=== PATIENT | male | born 1995 | race Caucasian/White ===

== ENCOUNTER 2022-09-28 14:33 | Emergency (ER) | payer MEDICAID, SELFPAY ==
[2022-09-28 14:34] VITALS: BP 132/91; PULSE 93; RESP 15; TEMP 36.4; O2SAT 98; BMI 19.8
--- NOTE | 2022-09-28 15:12 | CT_ITS ---
INDICATION: Change in Mental Status EXAMINATION: CT BRAIN - CT Head or Brain W/O Contrast Injection TECHNIQUE: Multiple axial images were obtained of the head without intravenous contrast. A radiation dose optimization technique was used for this scan. IV Contrast dosage and agent: None. COMPARISON: FINDINGS: BRAIN PARENCHYMA: No intra- or extra-axial hemorrhage. No evidence of acute infarct. No intracranial mass or mass effect. There is preservation of the clinton/white matter interface. Posterior fossa structures are unremarkable. CSF SPACES: Appropriate for age. No hydrocephalus. Basal cisterns are patent. CALVARIUM, SKULL BASE, PARANASAL SINUSES AND MASTOID AIR CELLS: Mild mucosal thickening of the maxillary and anterior ethmoid sinus. No discrete lytic or blastic abnormalities. There is cellulitis within the subcutaneous fat in the left upper neck posteriorly which is incompletely imaged without well-defined abscess ORBITS: Both globes, extraocular muscles, optic nerves and retrobulbar fat appear unremarkable. ASPECTS Score for Acute Strokes: 10 CT/Brain/Head without Contrast IMPRESSION: Negative Brain CT without contrast. Mild left maxillary and ethmoid sinus disease Cellulitis within the left upper neck posteriorly which is incompletely imaged without well-defined abscess Additional imaging of the neck with contrast would be helpful for further evaluation if clinically warranted Electronically Signed: Venkatesh Smith MD at 16:05 EST ,
--- NOTE | 2022-09-28 15:14 | EDS_ITS ---
HPI <Dr. Jarret Coates MD - Last Filed: 09/28/22 16:45> History of Present Illness Chief Complaint: Suicidal Informant: patient and parent Narrative Narrative: Mom brings in this patient for several reasons, she is concerned he has another active MRSA infection, 2 to 3 days of tender swollen area on the back of his head, has had some spontaneous drainage but very little, disorientation, hallucinations with commands telling him to kill himself and that he should although he is not having any suicidal ideation, and the fact that he is likely dehydrated since she brought him here directly off of a plane from [facility], it is taking him about 2 days including airport delays to get home, he has been in [place] homeless on the streets for about 7 months and was a missing person there. He states he was using IV fentanyl and what ever may have been mixed in with it but nothing else intentionally for that period of time, and at the end of July had what he was told was MRSA that was resistant and needed to be on linezolid for the lesions on his arms. He and mom state that they are much better now. He has been on no antibiotics for the past 2 or 3 weeks at least, saying that he was in snf at 1 point out there in [place] and while he was in snf they were giving him the antibiotics correctly. Mom is concerned that he is dehydrated since he has not been drinking fluids well or eating well. He has been having the auditory hallucinations for the past 2 weeks or more according to the patient, at least those that he is aware of has been hallucinations, and he stopped using drugs about 1 week ago. Mom then indicates he was seeing people in [place] 1 point prior to this, but the patient turns to her and states mom I hate to tell you this but those were real not hallucinations. He does not have a prior history of mental health diagnoses. PFSH <Dr. Jarret Coates MD - Last Filed: 09/28/22 16:45> [facility] Home Medications sulfamethoxazole 800 mg-trimethoprim 160 mg tablet 1 tab PO BID #20 TABLETS 09/28/22 [Rx Last Taken Unknown] Allergy/AdvReac Type Severity Reaction Status Date / Time No Known Allergies Allergy Verified 09/28/22 14:34 Social History (Updated 09/28/22 @ 15:[address] Jarret Coates MD) Smoking Status: Never smoker substance use type: opiates and IV drugs ROS <Dr. Jarret Coates MD - Last Filed: 09/28/22 16:45> ROS ED Constitutional Constitutional ED: Reports malaise; Denies chills or fever(s) Eyes Eyes: Denies change in vision or diplopia ENT ENT ED: Denies rhinorrhea or sore throat Cardiovascular Cardiovascular: Denies chest pain or palpitations Respiratory/Chest Respiratory/Chest: Reports cough; Denies dyspnea Gastrointestinal Gastrointestinal: Denies abdominal pain, diarrhea, nausea or vomiting Genitourinary Genitourinary ED: Denies dysuria or hematuria Musculoskeletal Musculoskeletal: Denies back pain or neck pain Integumentary Reports abscess; Denies rash Neurologic Neurologic: Reports confusion; Denies headache(s), paresthesias or weakness Psychiatric Psychiatric: Reports as per HPI, hallucinations and suicidal thoughts; Denies anxiety or suicidal ideation EXAM <Dr. Jarret Coates MD - Last Filed: 09/28/22 16:45> Physical Exam Const Vital Signs: 09/28/22 14:34 09/28/22 17:04 09/28/22 19:18 Temperature 97.5 F L Temperature Source Temporal Pulse Rate 93 79 Respiratory Rate 15 16 17 Blood Pressure 132/91 H 130/76 H Blood Pressure Mean 104 94 Pulse Ox 98 99 Oxygen Delivery Method Room Air Room Air Positive well nourished and well developed General Appearance ED: well developed and NAD HEENT Reports moist mucous membranes normocephalic and atraumatic Eyes PERRL and EOMs intact bilaterally Neck full ROM and supple Resp normal respiratory effort and clear to auscultation bilaterally Cardio regular rate, regular rhythm and no murmurs GI non-tender and non-distended Auscultation: normoactive bowel sounds Palpation: soft Back/Spine no CVA tenderness General Back: other FROM Extremity normal to inspection General Extremety ED: Negative for edema, pulses abnormal or tenderness General Extremity: Negative for edema or pulses abnormal Neuro oriented x3, CN's II-XII intact bilaterally and no sensory deficits noted Sensorium / Orientation: awake and alert Motor Exam: strength 5/5 throughout Psych mental status grossly normal Skin Skin Narrative: Nontender track lyles both forearms, more on the right, residual erythema without abscess or lymphangitis/active infection. There is a small 2 cm abscess within the hairline of the scalp left posterior occiput no spontaneous drainage erythematous and very tender. <Dr. Charlie Barnhart MD - Last Filed: 09/28/22 19:25> Physical Exam Const Vital Signs: 09/28/22 14:34 09/28/22 17:04 09/28/22 19:18 Temperature 97.5 F L Temperature Source Temporal Pulse Rate 93 79 Respiratory Rate 15 16 17 Blood Pressure 132/91 H 130/76 H Blood Pressure Mean 104 94 Pulse Ox 98 99 Oxygen Delivery Method Room Air Room Air MDM <Dr. Jarret Coates MD - Last Filed: 09/28/22 16:45> MDM MDM Narrative Medical decision making narrative: Patient's work-up is normal except for a slightly low TSH. And he is positive for COVID. This explains coughing malaise. He states he has been symptomatic with regards of the cough maybe 3 days. He does not have suicidal ideation therefore do not think he needs a sitter here. Social work is not here today, and I do not think he needs emergent psychiatric admission. He started having these hallucinations while he was still using drugs and although he has been clean for the last week continues to have the auditory hallucinations. He states he has been on Suboxone, his last dose was yesterday. After the I&D abscess on back of his head/neck, he was started on Bactrim given his history of MRSA and this abscess is consistent with that as well. With regards to his TSH being a little low, he is clinically not hyperthyroid or in thyroid storm. His vital signs are normal, he does not have tachycardia or A. fib, nor is he disoriented/confused. He is not septic, and is otherwise medically cleared. Will have crisis evaluate. If they are comfortable letting mom take him home, I would be comfortable with that and have him follow-up with psychiatry and addiction outpatient follow-up [facility] after the weekend. Lab Data Attestation: I reviewed the patient's lab results. Labs: Laboratory Results - last 24 hr 09/28/22 09/28/22 09/28/22 15:20 15:20 15:20 WBC 10.4 RBC 4.28 L Hgb 12.5 L Hct 38.1 L MCV 89.0 MCH 29.2 MCHC 32.8 RDW Std Deviation 52.7 H RDW Coeff of Edita 16.0 H Plt Count 266 MPV 8.8 Immature Gran % (Auto) 0.500 Neut % (Auto) 68.6 Lymph % (Auto) 20.9 Parmer % (Auto) 8.1 Eos % (Auto) 1.6 Baso % (Auto) 0.3 Absolute Neuts (auto) 7.2 Absolute Lymphs (auto) 2.18 Nucleated RBC % 0 Sodium 142 Potassium 3.8 Chloride 108 H Carbon Dioxide 30.0 Anion Gap 4 L BUN 11 Creatinine 0.80 Estim Creat Clear Calc 134.66 Est GFR (MDRD) Af Amer 151 Est GFR (MDRD) Non-Af 124 BUN/Creatinine Ratio 13.8 Glucose 121 H Calcium 8.9 Total Bilirubin 0.20 AST 9 L ALT 16 Alkaline Phosphatase 63 Total Protein 7.2 Albumin 3.4 Globulin 3.8 Albumin/Globulin Ratio 0.9 TSH 0.23 L Urine Color Urine Clarity Urine pH Ur Specific [place] Urine Protein Urine Glucose (UA) Urine Ketones Urine Occult Blood Urine Nitrite Urine Bilirubin Urine Urobilinogen Ur Leukocyte Esterase Urine RBC Urine WBC Ur Squamous Epith Cells Urine Bacteria Urine Mucus Urine Opiates Screen Urine Methadone Screen Ur Barbiturates Screen Ur Phencyclidine Scrn Ur Amphetamines Screen MDMA (Ecstasy) Screen U Benzodiazepines Scrn Urine Cocaine Screen U Cannabinoids Screen Ur Drug Screen Comment Ethyl Alcohol < 3.0 09/28/22 09/28/22 16:15 16:15 WBC RBC Hgb Hct MCV MCH MCHC RDW Std Deviation RDW Coeff of Edita Plt Count MPV Immature Gran % (Auto) Neut % (Auto) Lymph % (Auto) Parmer % (Auto) Eos % (Auto) Baso % (Auto) Absolute Neuts (auto) Absolute Lymphs (auto) Nucleated RBC % Sodium Potassium Chloride Carbon Dioxide Anion Gap BUN Creatinine Estim Creat Clear Calc Est GFR (MDRD) Af Amer Est GFR (MDRD) Non-Af BUN/Creatinine Ratio Glucose Calcium Total Bilirubin AST ALT Alkaline Phosphatase Total Protein Albumin Globulin Albumin/Globulin Ratio TSH Urine Color Yellow Urine Clarity Clear Urine pH 8.0 Ur Specific [place] 1.015 Urine Protein Negative Urine Glucose (UA) Normal Urine Ketones 5 H Urine Occult Blood Negative Urine Nitrite Negative Urine Bilirubin Negative Urine Urobilinogen Normal Ur Leukocyte Esterase Negative Urine RBC 0 SEEN Urine WBC 0 SEEN Ur Squamous Epith Cells 0 SEEN Urine Bacteria 0 SEEN Urine Mucus 2+ Urine Opiates Screen NEGATIVE Urine Methadone Screen NEGATIVE Ur Barbiturates Screen NEGATIVE Ur Phencyclidine Scrn NEGATIVE Ur Amphetamines Screen NEGATIVE MDMA (Ecstasy) Screen NEGATIVE U Benzodiazepines Scrn NEGATIVE Urine Cocaine Screen NEGATIVE U Cannabinoids Screen NEGATIVE Ur Drug Screen Comment Ethyl Alcohol Radiography Diagnostic Testing: Clinical Impression(s) from Imaging Studies Brain CT 09/28/22 15:12 IMPRESSION: Negative Brain CT without contrast. Mild left maxillary and ethmoid sinus disease Cellulitis within the left upper neck posteriorly which is incompletely imaged without well-defined abscess Additional imaging of the neck with contrast would be helpful for further evaluation if clinically warranted Electronically Signed: Venkatesh Smith MD at 16:05 EST , Rhythm Strip Rhythm Strip: Sinus Rhythm Rate: 90 Ectopy: None <Dr. Charlie Barnhart MD - Last Filed: 09/28/22 19:25> [facility] MDM Narrative Medical decision making narrative: Patient's work-up is normal except for a slightly low TSH. And he is positive for COVID. This explains coughing malaise. He states he has been symptomatic with regards of the cough maybe 3 days. He does not have suicidal ideation therefore do not think he needs a sitter here. Social work is not here today, and I do not think he needs emergent psychiatric admission. He started having these hallucinations while he was still using drugs and although he has been clean for the last week continues to have the auditory hallucinations. He states he has been on Suboxone, his last dose was yesterday. After the I&D abscess on back of his head/neck, he was started on Bactrim given his history of MRSA and this abscess is consistent with that as well. With regards to his TSH being a little low, he is clinically not hyperthyroid or in thyroid storm. His vital signs are normal, he does not have tachycardia or A. fib, nor is he disoriented/confused. He is not septic, and is otherwise medically cleared. Will have crisis evaluate. If they are comfortable letting mom take him home, I would be comfortable with that and have him follow-up with psychiatry and addiction outpatient follow-up [facility] after the weekend. Patient was turned over to me by Dr. Perez Coates. Patient was evaluated by crisis. They are also comfortable as well as he would the patient be discharged. Mom understands that with the COVID he would just remain in the ER for the next 3 to 5 days. They will do outpatient follow-up. Lab Data Labs: Laboratory Results - last 24 hr 09/28/22 09/28/22 09/28/22 15:20 15:20 15:20 WBC 10.4 RBC 4.28 L Hgb 12.5 L Hct 38.1 L MCV 89.0 MCH 29.2 MCHC 32.8 RDW Std Deviation 52.7 H RDW Coeff of Edita 16.0 H Plt Count 266 MPV 8.8 Immature Gran % (Auto) 0.500 Neut % (Auto) 68.6 Lymph % (Auto) 20.9 Parmer % (Auto) 8.1 Eos % (Auto) 1.6 Baso % (Auto) 0.3 Absolute Neuts (auto) 7.2 Absolute Lymphs (auto) 2.18 Nucleated RBC % 0 Sodium 142 Potassium 3.8 Chloride 108 H Carbon Dioxide 30.0 Anion Gap 4 L BUN 11 Creatinine 0.80 Estim Creat Clear Calc 134.66 Est GFR (MDRD) Af Amer 151 Est GFR (MDRD) Non-Af 124 BUN/Creatinine Ratio 13.8 Glucose 121 H Calcium 8.9 Total Bilirubin 0.20 AST 9 L ALT 16 Alkaline Phosphatase 63 Total Protein 7.2 Albumin 3.4 Globulin 3.8 Albumin/Globulin Ratio 0.9 TSH 0.23 L Urine Color Urine Clarity Urine pH Ur Specific [place] Urine Protein Urine Glucose (UA) Urine Ketones Urine Occult Blood Urine Nitrite Urine Bilirubin Urine Urobilinogen Ur Leukocyte Esterase Urine RBC Urine WBC Ur Squamous Epith Cells Urine Bacteria Urine Mucus Urine Opiates Screen Urine Methadone Screen Ur Barbiturates Screen Ur Phencyclidine Scrn Ur Amphetamines Screen MDMA (Ecstasy) Screen U Benzodiazepines Scrn Urine Cocaine Screen U Cannabinoids Screen Ur Drug Screen Comment Ethyl Alcohol < 3.0 09/28/22 09/28/22 16:15 16:15 WBC RBC Hgb Hct MCV MCH MCHC RDW Std Deviation RDW Coeff of Edita Plt Count MPV Immature Gran % (Auto) Neut % (Auto) Lymph % (Auto) Parmer % (Auto) Eos % (Auto) Baso % (Auto) Absolute Neuts (auto) Absolute Lymphs (auto) Nucleated RBC % Sodium Potassium Chloride Carbon Dioxide Anion Gap BUN Creatinine Estim Creat Clear Calc Est GFR (MDRD) Af Amer Est GFR (MDRD) Non-Af BUN/Creatinine Ratio Glucose Calcium Total Bilirubin AST ALT Alkaline Phosphatase Total Protein Albumin Globulin Albumin/Globulin Ratio TSH Urine Color Yellow Urine Clarity Clear Urine pH 8.0 Ur Specific [place] 1.015 Urine Protein Negative Urine Glucose (UA) Normal Urine Ketones 5 H Urine Occult Blood Negative Urine Nitrite Negative Urine Bilirubin Negative Urine Urobilinogen Normal Ur Leukocyte Esterase Negative Urine RBC 0 SEEN Urine WBC 0 SEEN Ur Squamous Epith Cells 0 SEEN Urine Bacteria 0 SEEN Urine Mucus 2+ Urine Opiates Screen NEGATIVE Urine Methadone Screen NEGATIVE Ur Barbiturates Screen NEGATIVE Ur Phencyclidine Scrn NEGATIVE Ur Amphetamines Screen NEGATIVE MDMA (Ecstasy) Screen NEGATIVE U Benzodiazepines Scrn NEGATIVE Urine Cocaine Screen NEGATIVE U Cannabinoids Screen NEGATIVE Ur Drug Screen Comment Ethyl Alcohol Radiography Diagnostic Testing: Clinical Impression(s) from Imaging Studies Brain CT 09/28/22 15:12 IMPRESSION: Negative Brain CT without contrast. Mild left maxillary and ethmoid sinus disease Cellulitis within the left upper neck posteriorly which is incompletely imaged without well-defined abscess Additional imaging of the neck with contrast would be helpful for further evaluation if clinically warranted Electronically Signed: Venkatesh Smith MD at 16:05 EST Reading Location ID and State: [address] [place] [address] , Service support , Procedures <Dr. Jarret Coates MD - Last Filed: 09/28/22 16:45> Other Procedures Procedure(s): Incision and drainage abscess, simple: 2 cm cutaneous abscess within the hairline left occipital with associated tender superficial cervical lymphadenopathy. Prepped and draped in a sterile fashion with chlorhexidine, anesthetized locally with plain 1% lidocaine 2 cc, incised centrally with a #10 blade, small amount of purulent material expressed after deloculated with hemostats. Expressed a little more manually. Cleansed, dressed with bacitracin tolerated well no complications. Discharge Plan Triage Chief Complaint: Suicidal Other Complaint: Wound Check ED Provider: Jarret Coates Dx/Rx/DC Orders Clinical Impression: Auditory hallucinations, Scalp abscess, Polysubstance abuse, COVID-19 Instructions: Coronavirus Disease 2019 (COVID-19): Caring for Yourself or Others, ED Drug Abuse Prescriptions: New sulfamethoxazole-trimethoprim [sulfamethoxazole-trimethoprim] 1 TABLET tablet 1 tab PO BID Qty: 20 0RF Primary Care Provider: Care Physician,No Primary Referrals: [facility] [Non-Staff] - As soon as possible [facility],Out of [Non-Staff] - Activity Restrictions/Additional Instructions: Try to get a home portable pulse oximeter and closely watch your oxygen levels periodically. If you stay below 90% for more than a minute or so, and/or you are feeling like your breathing is getting worse, return to the emergency department for further evaluation. Currently, CDC recommendations state that you should stay home through day 5 of symptoms (09/30/22 for you), then as long as symptoms are improving, if you need to go to work or somewhere else you may for days 6-10 as long as you are wearing a mask the entire time. If you are feeling better after day 10 you may resume life is normal. Disposition Disposition: Home, Self Care
--- NOTE | 2022-09-28 15:28 | ED.RN ---
PT EVALUATED BY DR. DE LEÓN. PER DR. DE LEÓN PT DOES NOT NEED A SITTER AT THIS TIME.
[2022-09-28] MEDS: 0.9% Normal Saline 1,000 ML 999 ML IV (15:30)
[2022-09-28] MEDS: Lidocaine 1% (20 ml mdv) 20 ML Vial INFILT (15:30)
[2022-09-28] MEDS: Smz/Tmp Ds Tablet 1 TABLET PO (15:32)
[2022-09-28 16:01] LABS: Alcohol, Blood (Medical)-Serum < 3.0 mg/dL
[2022-09-28 16:09] LABS: Absolute Lymphocyte Count 2.18 X10^3/uL (0.83-4.51); Absolute Neutrophil Count 7.2 X10^3/uL (2.0-7.7); Basophil# 0.03 X10^3/uL; Basophil% 0.3 % (0-1); Eosinophil# 0.17 X10^3/uL; Eosinophils% 1.6 % (0-5); Hematocrit 38.1 % (40-54); Hemoglobin 12.5 g/dL (13.0-16.5); Lymphocyte # 2.18 X10^3/ul (0.83-4.51); Lymphocyte % 20.9 % (19-41); Mean Corp Hgb Conc 32.8 g/dL (32-36); Mean Corpuscular Hgb 29.2 pg (27.0-32.0); Mean Platelet Vol. 8.8 fl (6.2-12.0); Monocyte# 0.85 X10^3/uL; Monocyte% 8.1 % (0-10); NRBC Flagged by Analyzer 0 % (0-5); Neutrophil # 7.15 X10^3/uL (2.7-7.7); Neutrophil % 68.6 % (47-70); Platelet Count 266 K/mm3 (150-450); RBC Distribution Width SD 52.7 fl (35.1-43.9); Red Blood Count 4.28 M/mm3 (4.6-6.2); White Blood Count 10.4 K/mm3 (4.4-11.0)
[2022-09-28 16:13] LABS: ALB/GLOB Ratio 0.9 RATIO (0.9-2.4); AST(SGOT) 9 U/L (15-37); Alanine Aminotransfer ALT/SGPT 16 U/L (16-61); Albumin, Serum 3.4 g/dL (3.2-5.0); Alkaline Phosphatase 63 U/L (45-117); Anion Gap 4 (5-15); BUN 11 mg/dL (7-18); BUN/Creat Ratio 13.8 RATIO (10-20); Calcium,Total 8.9 mg/dL (8.5-10.1); Chloride 108 mmol/L (98-107); EST Glomerular Filtration Rate 124 mL/min (>60); Est Glom Filt Rate - Afr Amer 151 mL/min (>60); Estimated Creatinine Clearance 134.66 ml/min; Globulin 3.8 g/dL (2.2-4.2); Glucose 121 mg/dL (74-106); Potassium 3.8 mmol/L (3.5-5.1); Protein, Total 7.2 g/dL (6.4-8.2); Sodium Level 142 mmol/L (136-145); Thyroid Stim Hormone (TSH) 0.23 uIU/mL (0.358-3.74)
[2022-09-28 16:20] LABS: Bacteria 0 SEEN /hpf (None Seen); Red Blood Cells-Urine 0 SEEN /hpf (0-5); Squamous Epithelial Cells - UA 0 SEEN /hpf (0-5); White Blood Cells 0 SEEN /hpf (0-5)
[2022-09-28 16:29] LABS: Color, Urine Yellow (Yellow); Glucose, Dipstick Normal (Normal); Ketone-Dipstick 5 mg/dl (Negative); Leukocyte Esterase-Dipstick Negative /ul (Negative); Nitrite-Dipstick Negative (Negative); Occult Blood-Urine Negative /ul (Negative); Protein-Dipstick Negative (Negative); Specific Gravity, Urine 1.015 (1.002-1.030); Urine Bilirubin Dipstick Negative (Negative); Urine Clarity Clear (Clear); Urine Urobilinogen Normal (Normal)
[2022-09-28 16:37] LABS: Mucous, Urine 2+ /hpf (<or=2+)
[2022-09-28 16:56] LABS: Amphetamine Urine VISTA NEGATIVE (<1000 ng/mL); Barbiturate Urine VISTA NEGATIVE (< 200 ng/mL); Benzodiazepine Urine VISTA NEGATIVE (< 200 ng/mL); Cocaine Urine VISTA NEGATIVE (< 300 ng/mL); Ecstacy Urine VISTA NEGATIVE (< 500 ng/mL); Methadone Urine VISTA NEGATIVE (< 300 ng/mL); PCP Urine VISTA NEGATIVE (< 25 ng/mL); THC Urine VISTA NEGATIVE (< 50 ng/mL); Vista UDS pH Range 7
[2022-09-28] MEDS: Ibuprofen 600 MG Tablet PO (17:00)
[2022-09-28 17:04] VITALS: BP 130/76; PULSE 79; RESP 16; O2SAT 99
[2022-09-28 19:18] VITALS: RESP 17
== END 2022-09-28 19:36 | disposition home or self-care (01) ==
PROVIDERS: Emergency Provider Emergency Medicine; Visit Provider Emergency Medicine
DX: U07.1 COVID-19 (principal); L02.811 Cutaneous abscess of head [any part, except face]; R44.3 Hallucinations, unspecified; R41.0 Disorientation, unspecified; E86.0 Dehydration; B95.62 Methicillin resistant Staphylococcus aureus infection as the cause of diseases classified elsewhere
CPT/HCPCS: 70450; 80053; 80307; 81001; 82077; 84443; 85025; 87811; 96360; 99284; J7030; A4216

== ENCOUNTER 2023-07-29 08:21 | Emergency (ER) | payer MEDICAID, SELFPAY ==
[2023-07-29 08:22] VITALS: BP 132/80; PULSE 91; RESP 18; TEMP 35.9; O2SAT 93; BMI 23.1
--- NOTE | 2023-07-29 08:41 | EX.ED.VIS.PS ---
HPI HPI - Psych History of Present Illness Chief Complaint: Mental Health Detail of Chief Complaint: Auditory hallucinations telling him to kill himself. Informant: patient Onset/Context/Timing Onset: Weeks Context: Gradual Onset Timing: Continuous Current Severity: Moderate Maximum Severity: Moderate Worsened by: Situational factors and Alcohol intoxication Associated Symptoms Associated Symptoms - Psych: Positive for Auditory Hallucinations Narrative Narrative: 28-year-old male history of bipolar disorder auditory and visual psychosis and PTSD. 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 States he is hearing voices that typically degrade him in and out of town him to kill himself. He was admitted for similar voices about 4 months ago. He is currently on medications. He does not think they are working well. He denies any drug use at this time. He denies any recent suicide attempts. Prior similar symptoms: Yes Recent Illness/Hospitalization: Yes PFSH PFS Home Medications sulfamethoxazole 800 mg-trimethoprim 160 mg tablet 1 tab PO BID #20 TABLETS 09/28/22 [Rx Last Taken Unknown] Allergy/AdvReac Type Severity Reaction Status Date / Time No Known Allergies Allergy Verified 09/28/22 14:34 Social History Smoking Status: Never smoker substance use type: opiates and IV drugs ROS ROS ED ROS Narrative Denies recent illness. Review of Systems ROS Unobtainable: Denies due to encephalopathy Constitutional Constitutional ED: Denies chills or fever(s) Eyes Eyes: Denies blurry vision ENT ENT ED: Denies ear pain Cardiovascular Cardiovascular: Denies chest pain Respiratory/Chest Respiratory/Chest: Denies cough or dyspnea Gastrointestinal Gastrointestinal: Denies abdominal pain Genitourinary Genitourinary ED: Denies dysuria Musculoskeletal Musculoskeletal: Denies arthralgias Integumentary Denies abscess Neurologic Neurologic: Denies headache(s) Psychiatric Psychiatric: Reports suicidal ideation and suicidal thoughts; Denies anxiety Endocrine Endocrinology: Denies polydipsia Hematologic/Lymphatic Hematologic/Lymphatic: Denies easy bleeding Allergic/Immunologic Allergic/Immunologic ED: Denies mouth swelling EXAM Physical Exam Narrative Exam Narrative: Well-appearing 28-year-old male. Sitting upright in bed. Sitter in the room. Vital signs are stable and afebrile. H EENT exam unremarkable. Neck nontender. Lungs clear to auscultation bilaterally. Heart regular rhythm rate about 90 no murmur. Chest wall and ribs nontender. Abdomen soft nontender. Back nontender. Moving all 4 extremities. Nontender. No edema. No track lyles. Normal motor strength and range of motion. Neurologically is awake and alert. Answering questions following commands. He does make eye contact. He is cooperative at this time and calm. Const Vital Signs: 07/29/23 08:22 Temperature 96.7 F L Temperature Source Temporal Pulse Rate 91 Respiratory Rate 18 Blood Pressure 132/80 H Blood Pressure Mean 97 Pulse Ox 93 Oxygen Delivery Method Room Air Positive well nourished and well developed; Negative for obese, cachectic, contractures or unkempt General Appearance ED: well developed and NAD; Negative for unkempt, cachectic, contractures or pallor Nutritional Appearance: Negative for cachectic or obese HEENT Reports moist mucous membranes normocephalic and atraumatic; Negative for trauma or tenderness Eyes PERRL and EOMs intact bilaterally General Eye ED: Negative for pale conjunctiva or scleral icterus Neck no lymphadenopathy, supple and no JVD General: Negative for tenderness Resp normal respiratory effort and clear to auscultation bilaterally Effort and Inspection: Negative for retractions Auscultation: Negative for rales, rhonchi or wheezes Cardio S1 normal heart sound, S2 normal heart sound and no murmurs Palpation: Negative for other Rate: regular rate Rhythm: regular rhythm GI non-tender, non-distended and no masses Inspection: Negative for abdominal distention Auscultation: normoactive bowel sounds Palpation: soft; Negative for tender or guarding Back/Spine no CVA tenderness General Back: Negative for CVA tenderness Cervical Spine: Negative for cervical spine tenderness Thoracic Spine / Upper Back: Negative for thoracic spinal tenderness Lumbar Spine / Lower Back: Negative for lumbar spinal tenderness Coccyx: Negative for other Extremity normal to inspection General Extremety ED: Negative for edema or tenderness General Extremity: Negative for edema Neuro oriented x3, CN's II-XII intact bilaterally, no sensory deficits noted and deep tendon reflexes 2+ bilaterally Sensorium / Orientation: alert, oriented to person, oriented to place and oriented to time Sensory Exam: No sensory level loss detected Motor Exam: strength 5/5 throughout Psych mental status grossly normal, thought process normal, cooperative, affect normal, speech normal and activity/motor behavior normal; Negative for denies hallucinations or denies suicidal ideation Appearance: grossly normal, appropriate and well kempt; Negative for unkempt Attitude: calm, engaged, No paranoid, No withdrawn and No uncooperative Activity / Motor Behavior: appropriate eye contact Speech: normal speech Mood & Affect: euthymic mood Thought Process: normal thought process Thought Content: normal thought content Attention / Concentration: attention grossly intact Memory / Cognition: memory grossly intact Insight: insight good Judgement: judgement good Skin General Skin Exam: Negative for jaundice or pallor Rashes: no rashes Trauma: Negative for abrasion Wounds: Negative for amputation MDM MDM MDM Narrative Medical decision making narrative: 28-year-old male history of bipolar and auditory psychosis. Hearing voices telling him to kill himself. He will undergo ED mental health screening labs. When our rn social services comes in he will be evaluated by her and she and I will come up with a plan to determine if he needs to be admitted or can do outpatient follow-up. Repeat exam patient is doing all well currently at 9:52 AM. Awaiting rn social services evaluation. Lab Data Attestation: I reviewed the patient's lab results. Lab results narrative: Patient is a white count of 14.2. H&H of 14 and 42. Platelets 235. Chemistries unremarkable gap of 5. BUN and creatinine 19 and 1.1. Glucose 100. Urine tox screen negative. Alcohol level negative. Labs: Laboratory Results - last 24 hr 07/29/23 07/29/23 08:50 09:00 WBC 14.2 H RBC 4.68 Hgb 14.3 Hct 42.0 MCV 89.7 MCH 30.6 MCHC 34.0 RDW Std Deviation 45.0 H RDW Coeff of Edita 13.8 Plt Count 235 MPV 9.0 Immature Gran % (Auto) 0.400 Neut % (Auto) 67.5 Lymph % (Auto) 21.5 Rogers % (Auto) 9.8 Eos % (Auto) 0.4 Baso % (Auto) 0.4 Absolute Neuts (auto) 9.6 H Absolute Lymphs (auto) 3.04 Nucleated RBC % 0 Sodium 136 Potassium 3.7 Chloride 101 Carbon Dioxide 30.0 Anion Gap 5 BUN 19 H Creatinine 1.13 Estim Creat Clear Calc 110.37 Est GFR (MDRD) Af Amer 100 Est GFR (MDRD) Non-Af 83 BUN/Creatinine Ratio 16.8 Glucose 100 Calcium 9.1 Urine Opiates Screen NEGATIVE Urine Methadone Screen NEGATIVE Ur Barbiturates Screen NEGATIVE Ur Phencyclidine Scrn NEGATIVE Ur Amphetamines Screen NEGATIVE MDMA (Ecstasy) Screen NEGATIVE U Benzodiazepines Scrn NEGATIVE Urine Cocaine Screen NEGATIVE U Cannabinoids Screen NEGATIVE Ur Drug Screen Comment Ethyl Alcohol < 3.0 Discharge Plan Triage Chief Complaint: Mental Health ED Provider: Charlie Barnhart Dx/Rx/DC Orders Clinical Impression: Hx of bipolar disorder, Suicidal ideation, Auditory hallucinations Prescriptions: No Action sulfamethoxazole-trimethoprim [sulfamethoxazole-trimethoprim] 1 TABLET tablet 1 tab PO BID Qty: 20 0RF Primary Care Provider: Care Physician,No Primary Referrals: Care Physician,No Primary [Primary Care Provider] -
--- NOTE | 2023-07-29 09:05 | ED.RN ---
PER KARI, CHUTE BUILDER. PT VERBALIZED HE DOES NOT WANT MOTHER TO KNOW ANY INFORMATION. DR. GR AWARE.
[2023-07-29 09:11] LABS: Absolute Lymphocyte Count 3.04 X10^3/uL (0.83-4.51); Absolute Neutrophil Count 9.6 X10^3/uL (2.0-7.7); Basophil# 0.05 X10^3/uL; Basophil% 0.4 % (0-1); Eosinophil# 0.05 X10^3/uL; Eosinophils% 0.4 % (0-5); Hemoglobin 14.3 g/dL (13.0-16.5); Lymphocyte # 3.04 X10^3/ul (0.83-4.51); Lymphocyte % 21.5 % (19-41); Mean Corpuscular Hgb 30.6 pg (27.0-32.0); Mean Corpuscular Volume 89.7 fL (80-94); Monocyte# 1.39 X10^3/uL; Monocyte% 9.8 % (0-10); NRBC Flagged by Analyzer 0 % (0-5); Neutrophil # 9.57 X10^3/uL (2.7-7.7); Neutrophil % 67.5 % (47-70); Platelet Count 235 K/mm3 (150-450); RBC Distribution Width CV 13.8 % (11.6-14.6); Red Blood Count 4.68 M/mm3 (4.6-6.2); White Blood Count 14.2 K/mm3 (4.4-11.0)
[2023-07-29 09:34] LABS: Anion Gap 5 (5-15); BUN 19 mg/dL (7-18); BUN/Creat Ratio 16.8 RATIO (10-20); Calcium,Total 9.1 mg/dL (8.5-10.1); Chloride 101 mmol/L (98-107); Creatinine, Serum 1.13 mg/dL (0.70-1.30); EST Glomerular Filtration Rate 83 mL/min (>60); Est Glom Filt Rate - Afr Amer 100 mL/min (>60); Estimated Creatinine Clearance 110.37 ml/min; Glucose 100 mg/dL (74-106); Potassium 3.7 mmol/L (3.5-5.1); Sodium Level 136 mmol/L (136-145)
[2023-07-29 09:35] LABS: Alcohol, Blood (Medical)-Serum < 3.0 mg/dL
[2023-07-29 09:37] LABS: Amphetamine Urine VISTA NEGATIVE (<1000 ng/mL); Barbiturate Urine VISTA NEGATIVE (< 200 ng/mL); Benzodiazepine Urine VISTA NEGATIVE (< 200 ng/mL); Cocaine Urine VISTA NEGATIVE (< 300 ng/mL); Ecstacy Urine VISTA NEGATIVE (< 500 ng/mL); Methadone Urine VISTA NEGATIVE (< 300 ng/mL); PCP Urine VISTA NEGATIVE (< 25 ng/mL); THC Urine VISTA NEGATIVE (< 50 ng/mL); Vista UDS pH Range 5
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
[2023-07-29 13:49] VITALS: BP 98/64; PULSE 78; RESP 18; O2SAT 95
[2023-07-29 14:21] VITALS: RESP 16
--- NOTE | 2023-07-29 15:10 | CM.ED ---
Social Work Pt referred and accepted to [facility] [address] Irene. Pt is awaiting transport. Pt notified and given [facility] brochure for review. Pt's mother requesting to speak with SW. Pt's mother present in room with patient. Mother has many questions regarding placement, county, probation, substance abuse, and housing. SW answered questions as able and with pt's consent as he is an adult. Pt was reportedly to have housing set up when released from residential but reports [facility] declined him for housing initially due to no recent substance abuse. Pt reports he was then homeless. Pt's mother reports he was to get housing set up through [facility] but the counseling center may also be able to assist with housing. Mother reports he cannot go to [facility] due to probation because it is a different [facility]. SW explained pink slip to pt and mother and legal requirement to go to a psych facility which all are outside of [facility]. Pt did agree to have SW call sustainability officer Carlos Carvalho as pt reports intensive probation through [facility], . VM left for sustainability officer to return call. Plan: Patient to be transferred to [facility], pending transport. Tereza Uribe HEALTH RESEARCHER, COFFEE SUPERVISOR
[2023-07-29 15:33] VITALS: RESP 16
[2023-07-29 16:33] VITALS: PULSE 82; RESP 18; O2SAT 98
== END 2023-07-29 16:34 ==
PROVIDERS: Emergency Provider Emergency Medicine; Visit Provider Emergency Medicine
DX: F31.9 Bipolar disorder, unspecified (principal); R45.851 Suicidal ideations; R44.0 Auditory hallucinations
CPT/HCPCS: 36415; 80048; 80307; 82077; 85025; 99284